=== PATIENT | born 1995 | race Caucasian/White ===

== ENCOUNTER → 2016-06-13 | Outpatient (CLI) | payer OTHER ==
--- NOTE | 2016-06-13 11:52 | Diagnostic Imaging Report ---
PROCEDURE: US Gallbladder. TECHNIQUE: Multiple real-time grayscale images were obtained over the right upper quadrant in various projections. INDICATION: Abdominal pain. Elevated bilirubin. FINDINGS: The pancreas is largely obscured by bowel gas. The liver demonstrates no focal mass. There is hepatopetal flow in the portal vein. The gallbladder demonstrates no stones or wall thickening. No pericholecystic fluid. No intrahepatic biliary dilatation is seen. The CBD is 3 mm in caliber. The right kidney is 10.4 cm in length with no hydronephrosis or focal lesion. No fluid collection or free fluid in the upper right abdomen seen. IMPRESSION: No definite abnormality. Dictated by: Dictated on workstation # [id number]
== END ==
LOC: RAD 07:20
DX: R10.9 Unspecified abdominal pain (principal); E80.7 Disorder of bilirubin metabolism, unspecified
CPT/HCPCS: 76705